=== PATIENT | male | born 1970 | race Caucasian/White ===

== ENCOUNTER 2024-08-25 20:47 | Emergency (ER) | payer MEDICARE, SELFPAY ==
[2024-08-25 20:49] VITALS: BP 152/94
--- NOTE | 2024-08-25 21:30 | EDRN ---
spasming. Pt has pain management and an ortho. doctor. Pt states that he is unable to move at this time. Pt has no bladder or bowel incontinence. Pt is on disability for chronic back pain.
[2024-08-25 21:37] VITALS: BMI 25.2
[2024-08-25] MEDS: DILAUDID 1 MG IV (21:51)
[2024-08-25] MEDS: DECADRON 20 MG IV (21:55)
[2024-08-25] MEDS: MOTRIN 600 MG PO (22:00)
--- NOTE | 2024-08-25 22:33 | ED.GENMED ---
History of Present Illness
General
Chief Complaint: Back Pain
Source: patient
Exam Limitations: none
Time Seen by Provider: 08/25/24 21:17
History of Present Illness
History of Present Illness:
This is a 54 year old male that comes in with c/o back pain. States that he has chronic back pain and is on disability. States that last Tuesday he bent over to put on a sock and he felt a twinge. States that he laid in bed and took his Oxycodone and
Flexeril and by the spasm was some better but he was still disabled. States that if he tries to reach for something or get OOB he has pain. Patient does see pain management and has been to different doctors and they all had a different
opinion. Denies any fever, chills, chest pain, SOB, abd pain, nausea, vomiting, diarrhea, headache, dizziness, urinary burning, bowel or bladder incontinence.
Past History
Past History
ED Past Medical History: Other (Low back pain chronic, Renal calculus, ); Negative Asthma, HTN, Hypercholesterolemia or NIDDM
ED Past Surgical History: Orthopedic (Left forearm surgery) and Tonsilectomy
Social History
Tobacco: Non-smoker
Alcohol: Occasional
Personal:
Living: with family
Employment: Disabled
Review of Systems
Review of Systems
All Other Systems: ROS reviewed and negative except as documented in HPI and ROS
Constitutional: Reports no symptoms; Denies fever or chills
EENT: Reports no symptoms
Respiratory: Reports no symptoms; Denies cough or trouble breathing
Cardiac: Reports no symptoms; Denies chest pain
ABD/GI: Reports no symptoms; Denies abdominal pain, nausea, vomiting or diarrhea
: Denies no symptoms, dysuria, frequency or urgency
Musculoskeletal: Reports back pain (Low back pain)
Skin: Reports no symptoms
Neurological: Reports no symptoms; Denies dizzy or headache
Psychiatric: Reports no symptoms
Phy Exam
General Physical Exam
General Presentation: mild distress
General age: appears stated age
General Skin: warm and dry
General Habitus: normal
General Mental: alert
General Hydration: appears well hydrated
ENT Exam
ENT Exam: TM's normal, pharynx normal and neck supple
Eye Exam
Eye Exam: EOMI
Cardiovascular Exam
Cardiovascular Exam: regular rate/rhythm, no edema, no murmur and normal peripheral pulses
Pulmonary Exam
Pulmonary Exam: lungs clear, no respiratory distress, no rales, chest non tender, no crackles, no rhonchi, no wheezing and no cough
Gastrointestinal Exam
Gastrointestinal Exam: normal bowel sounds, non tender, soft, no organomegaly, no pulsatile mass and non distended
Musculoskeletal Exam
Musculoskeletal Exam: back pain (Lower spinal tenderness and tenderness lateral to the spine. )
Skin Exam
Skin Exam: normal color, warm/dry, no rash and no petechia
Psychiatric Exam
Psychiatric Exam: normal mood/affect
Course
Orders/Labs/Results
Orders:
Orders
08/25/24 21:39
Dexamethasone Sod Phosphate [Decadron] 20 mg IV NOW STA
HYDROmorphone [Dilaudid] 1 mg IV NOW STA
Ibuprofen [Motrin] 600 mg PO NOW STA
Vital Signs
Initial and Last Documented VS:
Initial Vital Signs
Temp Pulse Resp BP Pulse Ox
97.8 F 90 22 152/94 100
08/25/24 20:49 08/25/24 20:49 08/25/24 20:49 08/25/24 20:49 08/25/24 20:49
Last Documented Vital Signs
Temp Pulse Resp BP Pulse Ox
97.8 F 90 22 152/94 100
08/25/24 20:49 08/25/24 20:49 08/25/24 20:49 08/25/24 20:49 08/25/24 20:49
MDM/Problems Addressed
Differential Diagnosis Includes:
Chronic back pain.
MDM/Problems Addressed:
This is a 54 year old male that comes in with c/o back pain. States that he felt something twinge after bending over to put on a sock. States that he has had chronic pain and this week he has used his oxycodone and Flexeril but nothing is helping.
Explained to patient that he needs a MRI. Patient is aware of his disc problems and does follow up with Pain management. Will medication for pain. Will place patient on steroid for home. Give him a prescription for Oxycodone so he can use Tylenol
and ibuprofen to help with better pain control. Patient to follow up with the placement specialist. Return with any concerns .
Chronic conditions affecting care:
Chronic back pain
Acute Exacerbation and/or Progression of Chronic Illness:
chronic back pain
*Pulse Oximetry
Patient hypoxic: no
*EKG
Interpreted by ED Provider?: NA
Rate: EKG- N/A
*Flap Curer Interpretation
Rate: Flap Curer- N/A
*Critical Care Note
Total Time (30-74mins, 75-104mins- exclusive of procedures): Not Applicable
ED Attending Note
-
Portions of this chart may have been created with voice recognition software.� Occasional wrong word or��sound alike� substitutions may have occurred due to the inherent limitations of voice recognition software.
Discharge Plan
Departure
Patient Disposition: Home (Routine Discharge)
Date of Disposition: 08/25/24
Time of Disposition: 22:45
Patient with high blood pressure during this ER visit?: Yes
Condition: Good
Covid-19: Not Applicable
Discharge Problem:
Low back pain
Instructions: Low Back Pain (DC), BLOOD PRESSURE
Prescriptions:
New
prednisone 20 mg tablet
40 mg PO DAILY Qty: 10 0RF
oxycodone 5 mg tablet
5 mg PO Q6H PRN (Reason: Pain) Qty: 20 0RF
Referrals:
Ar Moralez MD [Family Provider] -
Dequan Hedrick MD [Active] - Follow up in 2-3 days
Activity Restrictions/Additional Instructions:
As discussed, you need to follow up with the placement specialist. You have had a prescription for Oxycodone sent to your pharmacy. Please use this for severe pain. You may use Tylenol 1000mg every 6 hours for pain and alternate with ibuprofen
600mg every 6 hours with food. So if you take Tylenol at 9am the Ibuprofen is due at 12 noon and the Tylenol at 3pm and the Ibuprofen at 6pm. Use the Narcotic pain medication for brake through pain as directed. Follow up with the Orthopedic
specialist for further evaluation. IF YOU HAVE ANY OTHER CONCERNS PLEASE RETURN TO THE EMERGENCY ROOM.
Interventions
Interventions:
*Risk Screen - Suicide Last Done: 08/25/24 20:49
*General Assessment Last Done: 08/25/24 21:24
*Neglect/Abuse Screening Last Done: 08/25/24 20:49
ED- Fall Risk Assessment Last Done: 08/25/24 21:24
*ED COVID-19 Vaccine History Last Done: 08/25/24 21:24
ED-Musculoskeletal Assessment Last Done: 08/25/24 21:24
Discharge Date and Time
Print Language: [id number]
[2024-08-25 22:39] VITALS: BP 148/95
== END 2024-08-25 23:00 | disposition home or self-care (01) ==
LOC: EMR 20:47
PROVIDERS: EMERGENCY PHYSICIAN Student in an Organized Health Care Education/Training Program; FAMILY PHYSICIAN Family Medicine
DX: G89.29 Other chronic pain (principal); M54.50 Low back pain, unspecified
CPT/HCPCS: 99284; 96374; 96375